=== PATIENT | female | born 1960 | race Caucasian/White ===

== ENCOUNTER 2017-04-09 12:30 | Emergency (ER) | payer OTHER ==
[~2017-04-09 12:30] MED LIST: IPRAT-ALBUT 0.5-3 ML INH; KLONOPIN TAB 00.5 MG PO; LEVAQUIN750 MG PO; MEDROL DOSEPAK 24 MG PO; NEURONTIN 400400 MG PO; NORCO 10-325 T1 EACH PO; PREDNISONE10 MG PO; PROAIR HFA8.5 GM INH; SYMBICORT 16010.2 GM INH
[2017-04-09 13:59] LABS: HEMOGLOBIN 15.4 gm/dl (12.3-15.3); RED BLOOD COUNT 5.68 M/UL (4.00-5.10); WHITE BLOOD COUNT 14.7 K/UL (4.5-11.0)
[2017-04-09 14:18] LABS: BUN/CREATININE RATIO 40 (0-10)
== END 2017-04-09 18:40 | disposition left against medical advice (07) ==
LOC: ER1 12:30
PROVIDERS: Family Medicine
DX: J44.1 Chronic obstructive pulmonary disease with (acute) exacerbation (principal); J98.4 Other disorders of lung; F17.210 Nicotine dependence, cigarettes, uncomplicated; Z99.81 Dependence on supplemental oxygen; Z88.1 Allergy status to other antibiotic agents; Z79.899 Other long term (current) drug therapy
CPT/HCPCS: 36415; 36600; 71010; 80053; 81001; 82550; 82553; 82803; 83874; 84484; 85025; 87086; 93005; 94640; 94664; 96374; 99285; J2930

== ENCOUNTER → 2017-05-21 | Outpatient (CLI) | payer OTHER | LOC: HEART 5 14:48 | DX: J44.9 Chronic obstructive pulmonary disease, unspecified (principal) | CPT/HCPCS: 94060; 94729 ==